=== PATIENT | female | born 1985 | race Hispanic/Latino ===

== ENCOUNTER → 2022-01-28 | Day surgery (SDC) | payer OTHER ==
[~2022-01-28] MED LIST: ADDERALL 30 MG30 MG PO; CORAL CALCIUM1 GM PO; FENTANYL CITRATE/PF 100MCG/2 ML INJ ONE; LIDOCAINE HCL 2% LOCAL INJ 5 ML SDV VIAL INJ ONE; MIDAZOLAM HCL 2 MG/2 ML VIAL ONE; OMEPRAZOLE20 MG PO; POVIDONE IODINE 0.05% 0.05 % ML PO ONE; PROPOFOL IV EMULSION 10 MG/ML 20 ML VIAL ONE; SERTRALINE HCL50 MG PO
[2022-01-28 15:00] VITALS: BP 131/90
== END | disposition home or self-care (01) ==
LOC: OR 10:43 → EDBD 11:30
PROVIDERS: ATTEND Internal Medicine Gastroenterology
DX: K29.50 Unspecified chronic gastritis without bleeding (principal); B96.81 Helicobacter pylori [H. pylori] as the cause of diseases classified elsewhere; K31.A12 Gastric intestinal metaplasia without dysplasia, involving the body (corpus); K20.90 Esophagitis, unspecified without bleeding; K44.9 Diaphragmatic hernia without obstruction or gangrene; K21.9 Gastro-esophageal reflux disease without esophagitis; K59.09 Other constipation; D72.820 Lymphocytosis (symptomatic); Z71.3 Dietary counseling and surveillance; F90.9 Attention-deficit hyperactivity disorder, unspecified type; F43.10 Post-traumatic stress disorder, unspecified; F41.9 Anxiety disorder, unspecified; F32.A Depression, unspecified; Z88.6 Allergy status to analgesic agent; Z01.812 Encounter for preprocedural laboratory examination; Z20.822 Contact with and (suspected) exposure to COVID-19; Z79.899 Other long term (current) drug therapy; Z68.33 Body mass index [BMI] 33.0-33.9, adult
CPT/HCPCS: 43239; 81025; J2001; J2250; J3010; U0002